=== PATIENT | female | born 1975 | race Two or more races ===

== ENCOUNTER → 2016-09-25 | Outpatient (REF) | payer OTHER ==
[2016-09-25 16:03] LABS: ANION GAP 8 MEQ/L (8-16); BLOOD UREA NITROGEN 12 MG/DL (7-18); CALCIUM LEVEL 8.5 MG/DL (8.5-10.1); CARBON DIOXIDE LEVEL 27 MEQ/L (21-32); CHLORIDE LEVEL 105 MEQ/L (98-107); CREATININE FOR GFR 0.93 MG/DL (0.55-1.02); GLOMERULAR FILTRATION RATE > 60.0 (>58); GLUCOSE, FASTING 86 MG/DL (70-105); POTASSIUM SERUM 4.6 MEQ/L (3.5-5.1); SODIUM LEVEL 140 MEQ/L (136-145)
[2016-09-25 16:08] LABS: BASO % 0.3 % (0.0-1.0); EOS # 0.3 K/mm3 (0.0-0.50); EOS % 4.1 % (0.0-3.0); LARGE UNSTAINED CELL # 0.2 K/mm3 (0.0-0.4); LARGE UNSTAINED CELL % 2.6 % (0.0-4.0); LYMPH % 15.5 % (24.0-44.0); MEAN CORPUSCULAR HEMOGLOBIN 28.9 pg (27.0-33.0); MEAN CORPUSCULAR HGB CONC 32.6 g/dl (32.0-36.5); MEAN CORPUSCULAR VOLUME 88.8 fl (80.0-96.0); MONO # 0.7 K/mm3 (0.0-0.8); MONO % 10.4 % (0.0-5.0); NEUTROPHILS # 4.4 K/mm3 (1.8-7.7); NEUTROPHILS % 67.1 % (36.0-66.0); PLATELET COUNT, AUTOMATED 367 k/mm3 (150-450); RED CELL DISTRIBUTION WIDTH 11.8 % (11.5-14.5); WHITE BLOOD COUNT 6.5 K/mm3 (4.0-10.0)
== END ==
LOC: M SFHCPLAZ 13:02
PROVIDERS: ATTEND Internal Medicine Infectious Disease
DX: A49.02 Methicillin resistant Staphylococcus aureus infection, unspecified site (principal)

== ENCOUNTER 2016-09-29 08:55 | Emergency (ER) | payer OTHER ==
--- NOTE | 2016-09-29 09:31 | EDDOCDS ---
Nurse's Notes [facility] Name: Dolly Hobbs Age: 41 yrs Sex: Female : 1975 Arrival Date: 09/29/2016 Time: 08:55 Bed Triage 1 Private MD: Marek Monzon Diagnosis: Rash and other nonspecific skin eruption-drug rash Presentation: 09/29 08:57 Presenting complaint: Patient states: spoke with MD Vásquez and was told to come to ED. pml has been taking Bactrim for 10 days and had an abscess drained from left mastoid area. reports itching and rash across lower extremities and abdomen. Adult Sepsis Screening: The patient does not have new or worsening altered mentation. Patient's respiratory rate is less than 22. Systolic blood pressure is greater than 100. Patient has a qSOFA score of 0- Negative Sepsis Screen. Suicide/Homicide risk assessment- the patient denies having any suicidal and/or homicidal ideations and does not present with any other emotional, behavioral or mental health complaints. 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 Transition of care: patient was not received from another setting of care. 08:57 Acuity: HADLEY Level 4 pml 08:57 Method Of Arrival: Walkin/Carried/Asstd pml Triage Assessment: 09:00 General: Appears in no apparent distress, Behavior is appropriate for age, cooperative. pml Pain: Denies pain. HIV screening NA for this visit Offered previously. 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 Bactrim DS 800-160 mg Oral tab 2 tabs once daily 2. mupirocin 2 % topical oint twice a day - PMHx: MRSA; gastroparesis; factor V Liden; - PSHx: asbcess drained; D & C; - Social history: Smoking status: Patient states was never smoker of tobacco. No barriers to communication noted, The patient speaks fluent Italian, Speaks appropriately for age. - Family history: Not pertinent. - : The pt / caregiver states he / she is not on anticoagulants. Home medication list is obtained from the patient. - Exposure Risk Screening:: None identified. Screenin:28 Screening information is obtained from the patient. Fall risk: No risks identified. pml Assistance ADL's: requires no assistance with activities of daily living. Abuse/DV Screen: The patient / caregiver reports he/she is: not in a situation that causes fear, pain or injury. Nutritional screening: No deficits noted. Advance Directives: Currently, there is no health care proxy. home support is adequate. Assessment: 09:28 General: Appears in no apparent distress, comfortable, Behavior is appropriate for age, pml cooperative. Pain: Denies pain. Neurological: Level of Consciousness is awake, alert, Oriented to person, place, time. Cardiovascular: Capillary refill < 3 seconds. Respiratory: Airway is patent Respiratory effort is even, unlabored, Breath sounds are clear bilaterally. GI: Abdomen is non- distended. Derm: Skin is pink, warm & dry. Rash noted that is itchy, red. Vital Signs: 09:00 BP 135 / 81; Pulse 111; Resp 20; Temp 97.1(O); Pulse Ox 100% on R/A; Weight 60.78 kg; pml Height 5 ft. 2 in. (157.48 cm); Pain 0/10; 09:00 Body Mass Index 24.51 (60.78 kg, 157.48 cm) [facility] Vitals: 09:00 Log In Time: September 29, 2016 at 08:53. [facility] ED Course: 08:56 Patient visited by Eric Campo. mm15 08:56 Marek Monzon is Private Physician. mm15 08:56 Patient moved to Waiting mm15 08:59 Triage Initiated pml 09:03 Patient visited by Risa Florentino RN. pml 09:03 Gerson Garcia PA-C [facility] cc10 09:03 Nat Valdez MD is Attending Physician. cc10 09:03 Patient visited by Gerson Garcia PA-C. cc10 09:03 Patient visited by Gerson Garcia PA-C. cc10 09:03 Patient moved to Triage 1 pml 09:24 Sunny Elizondo is Referral Physician. cc10 09:28 The patient / caregiver is instructed regarding the plan of care and ED course. Patient pml has correct armband on for positive identification. Bed in low position. 09:28 No IV's were initiated during this patient's visit. No procedures done that require pml assistance. Order Results: There are currently no results for this order. Outcome: 09:24 Discharge ordered by Provider. cc10 09:28 Discharge Assessment: Patient awake, alert and oriented x 3. No cognitive and/or pml functional deficits noted. Patient verbalized understanding of disposition instructions. patient administered narcotics - no. The following High Risk Discharge criteria are identified: None. Discharged to home ambulatory. Condition: good Condition: stable. Discharge instructions given to patient, Instructed on discharge instructions, follow up and referral plans. medication usage, Demonstrated understanding of instructions, medications, Pt was receptive of discharge instructions/ teaching. Prescriptions given X 1. No special radiology studies were completed. Property sent home with patient. 09:31 Patient left the ED. pml Signatures: Risa FlorentinoRN RN pml Eric Campo mm15 Gerson Garcia, PA-C PA-C cc10 Corrections: (The following items were deleted from the chart) 09:29 09:28 Derm: Skin is pink, warm & dry. pml pml MTDD
--- NOTE | 2016-09-29 09:31 | EDDOCDS ---
Physician Documentation [facility] Name: Dolly Hobbs Age: 41 yrs Sex: Female : 1975 Arrival Date: 09/29/2016 Time: 08:55 Bed Triage 1 Private MD: Marek Monzon Disposition: 09/29/16 09:24 Discharged to Home/Self Care. Impression: Rash and other nonspecific skin eruption - drug rash. - Condition is Stable. - Discharge Instructions: Drug Rash. - Prescriptions for Doxycycline Hyclate 100 mg Oral Tablet - take 1 tablet by ORAL route every 12 hours; 20 tablet. - Medication Reconciliation form. - Follow up: Sunny Elizondo; When: Call to arrange an appointment; Reason: Wound/Symptom Recheck, Recheck today's complaints, Continuance of care. - Problem is new. - Symptoms are unchanged. Historical: - Allergies: no known allergies; - Home Meds: 1. Bactrim DS 800-160 mg Oral tab 2 tabs once daily 2. mupirocin 2 % topical oint twice a day - PMHx: MRSA; gastroparesis; factor V Liden; - PSHx: asbcess drained; D & C; - Social history: Smoking status: Patient states was never smoker of tobacco. No barriers to communication noted, The patient speaks fluent Nepali, Speaks appropriately for age. - Family history: Not pertinent. - : The pt / caregiver states he / she is not on anticoagulants. Home medication list is obtained from the patient. - Exposure Risk Screening:: None identified. 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 2 in. (157.48 cm); Pain 0/10; 09:00 Body Mass Index 24.51 (60.78 kg, 157.48 cm) pml MDM: 09:29 Financial registration complete. mm15 Signatures: Risa Florentino RN RN pml Eric Campo mm15 Gerson Garcia, SHERRYC PADominikC cc10 MTDD
--- NOTE | 2016-10-01 10:32 | EDDOCDS ---
Nurse's Notes [facility] Name: Dolly Hobbs Age: 41 yrs Sex: Female : 1975 Arrival Date: 09/29/2016 Time: 08:55 Bed Triage 1 Private MD: Marek Monzon Diagnosis: Rash and other nonspecific skin eruption-drug rash Presentation: 09/29 08:57 Presenting complaint: Patient states: spoke with MD Vásquez and was told to come to ED. pml has been taking Bactrim for 10 days and had an abscess drained from left mastoid area. reports itching and rash across lower extremities and abdomen. Adult Sepsis Screening: The patient does not have new or worsening altered mentation. Patient's respiratory rate is less than 22. Systolic blood pressure is greater than 100. Patient has a qSOFA score of 0- Negative Sepsis Screen. Suicide/Homicide risk assessment- the patient denies having any suicidal and/or homicidal ideations and does not present with any other emotional, behavioral or mental health complaints. 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 Transition of care: patient was not received from another setting of care. 08:57 Acuity: HADLEY Level 4 pml 08:57 Method Of Arrival: Walkin/Carried/Asstd pml Triage Assessment: 09:00 General: Appears in no apparent distress, Behavior is appropriate for age, cooperative. pml Pain: Denies pain. HIV screening NA for this visit Offered previously. 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 Bactrim DS 800-160 mg Oral tab 2 tabs once daily 2. mupirocin 2 % topical oint twice a day - PMHx: MRSA; gastroparesis; factor V Liden; - PSHx: asbcess drained; D & C; - Social history: Smoking status: Patient states was never smoker of tobacco. No barriers to communication noted, The patient speaks fluent Mauritian, Speaks appropriately for age. - Family history: Not pertinent. - : The pt / caregiver states he / she is not on anticoagulants. Home medication list is obtained from the patient. - Exposure Risk Screening:: None identified. Screenin:28 Screening information is obtained from the patient. Fall risk: No risks identified. pml Assistance ADL's: requires no assistance with activities of daily living. Abuse/DV Screen: The patient / caregiver reports he/she is: not in a situation that causes fear, pain or injury. Nutritional screening: No deficits noted. Advance Directives: Currently, there is no health care proxy. home support is adequate. Assessment: 09:28 General: Appears in no apparent distress, comfortable, Behavior is appropriate for age, pml cooperative. Pain: Denies pain. Neurological: Level of Consciousness is awake, alert, Oriented to person, place, time. Cardiovascular: Capillary refill < 3 seconds. Respiratory: Airway is patent Respiratory effort is even, unlabored, Breath sounds are clear bilaterally. GI: Abdomen is non- distended. Derm: Skin is pink, warm & dry. Rash noted that is itchy, red. Vital Signs: 09:00 BP 135 / 81; Pulse 111; Resp 20; Temp 97.1(O); Pulse Ox 100% on R/A; Weight 60.78 kg; pml Height 5 ft. 2 in. (157.48 cm); Pain 0/10; 09:00 Body Mass Index 24.51 (60.78 kg, 157.48 cm) [facility] Vitals: 09:00 Log In Time: September 29, 2016 at 08:53. [facility] ED Course: 08:56 Patient visited by Eric Campo. mm15 08:56 Marek Monzon is Private Physician. mm15 08:56 Patient moved to Waiting mm15 08:59 Triage Initiated pml 09:03 Patient visited by Risa Florentino RN. pml 09:03 Gerson Garcia PA-C is [facility]. cc10 09:03 Nat Valdez MD is Attending Physician. cc10 09:03 Patient visited by Gerson Garcia PA-C. cc10 09:03 Patient visited by Gerson Garcia PA-C. cc10 09:03 Patient moved to Triage 1 pml 09:24 Sunny Elizondo is Referral Physician. cc10 09:28 The patient / caregiver is instructed regarding the plan of care and ED course. Patient pml has correct armband on for positive identification. Bed in low position. 09:28 No IV's were initiated during this patient's visit. No procedures done that require pml assistance. 09:47 [facility] Agreement was scanned into [employer] and attached to record. mm15 10:03 Patient name changed from Dolly\S\\S\Young\S\ to Dolly\S\ \S\Young. EDMS 09/30 14:32 T-Sheet-- Draft Copy was scanned into [employer] and attached to record. gb Order Results: There are currently no results for this order. Outcome: 09/29 09:24 Discharge ordered by Provider. cc10 09:28 Discharge Assessment: Patient awake, alert and oriented x 3. No cognitive and/or pml functional deficits noted. Patient verbalized understanding of disposition instructions. patient administered narcotics - no. The following High Risk Discharge criteria are identified: None. Discharged to home ambulatory. Condition: good Condition: stable. Discharge instructions given to patient, Instructed on discharge instructions, follow up and referral plans. medication usage, Demonstrated understanding of instructions, medications, Pt was receptive of discharge instructions/ teaching. Prescriptions given X 1. No special radiology studies were completed. Property sent home with patient. 09:31 Patient left the ED. pml Signatures: Dispatcher [employer] EDRI Josette Choi, Reg Reg gb Risa Florentino,CANDE RN pml Eric Campo mm15 Gerson Garcia, PA-C PA-C cc10 Corrections: (The following items were deleted from the chart) 09:29 09:28 Derm: Skin is pink, warm & dry. pml pml Chart Complete MTDD
--- NOTE | 2016-10-01 10:32 | EDDOCDS ---
Physician Documentation [facility] Name: Dolly Hobbs Age: 41 yrs Sex: Female : 1975 Arrival Date: 09/29/2016 Time: 08:55 Bed Triage 1 Private MD: Marek Monzon Disposition: 09/29/16 09:24 Discharged to Home/Self Care. Impression: Rash and other nonspecific skin eruption - drug rash. - Condition is Stable. - Discharge Instructions: Drug Rash. - Prescriptions for Doxycycline Hyclate 100 mg Oral Tablet - take 1 tablet by ORAL route every 12 hours; 20 tablet. - Medication Reconciliation form. - Follow up: Sunny Elizondo; When: Call to arrange an appointment; Reason: Wound/Symptom Recheck, Recheck today's complaints, Continuance of care. - Problem is new. - Symptoms are unchanged. Historical: - Allergies: no known allergies; - Home Meds: 1. Bactrim DS 800-160 mg Oral tab 2 tabs once daily 2. mupirocin 2 % topical oint twice a day - PMHx: MRSA; gastroparesis; factor V Liden; - PSHx: asbcess drained; D & C; - Social history: Smoking status: Patient states was never smoker of tobacco. No barriers to communication noted, The patient speaks fluent Icelandic, Speaks appropriately for age. - Family history: Not pertinent. - : The pt / caregiver states he / she is not on anticoagulants. Home medication list is obtained from the patient. - Exposure Risk Screening:: None identified. 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 2 in. (157.48 cm); Pain 0/10; 09:00 Body Mass Index 24.51 (60.78 kg, 157.48 cm) pml MDM: 09:29 Financial registration complete. mm15 09:47 [facility] Payment Agreement was scanned into [employer] and attached to record. mm15 09/30 14:32 T-Sheet-- Draft Copy was scanned into [employer] and attached to record. gb Signatures: Josette Choi, Reg Reg gb Risa Florentino RN RN Eric Purdy mm15 Gerson Garcia, SHERRYC PADominikC cc10 The chart was reviewed and I authenticate all verbal orders and agree with the evaluation and treatment provided.Attachments: 09/29 09:47 [facility] Payment Agreement mm15 09/30 14:32 T-Sheet-- Draft Copy gb Chart Complete MTDD
--- NOTE | 2016-10-01 10:32 | EDDOCDS ---
Physician Documentation [facility] Name: Dolly Hobbs Age: 41 yrs Sex: Female : 1975 Arrival Date: 09/29/2016 Time: 08:55 Bed Triage 1 Private MD: Marek Monzon Disposition: 09/29/16 09:24 Discharged to Home/Self Care. Impression: Rash and other nonspecific skin eruption - drug rash. - Condition is Stable. - Discharge Instructions: Drug Rash. - Prescriptions for Doxycycline Hyclate 100 mg Oral Tablet - take 1 tablet by ORAL route every 12 hours; 20 tablet. - Medication Reconciliation form. - Follow up: Sunny Elizondo; When: Call to arrange an appointment; Reason: Wound/Symptom Recheck, Recheck today's complaints, Continuance of care. - Problem is new. - Symptoms are unchanged. Historical: - Allergies: no known allergies; - Home Meds: 1. Bactrim DS 800-160 mg Oral tab 2 tabs once daily 2. mupirocin 2 % topical oint twice a day - PMHx: MRSA; gastroparesis; factor V Liden; - PSHx: asbcess drained; D & C; - Social history: Smoking status: Patient states was never smoker of tobacco. No barriers to communication noted, The patient speaks fluent Danish, Speaks appropriately for age. - Family history: Not pertinent. - : The pt / caregiver states he / she is not on anticoagulants. Home medication list is obtained from the patient. - Exposure Risk Screening:: None identified. 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 2 in. (157.48 cm); Pain 0/10; 09:00 Body Mass Index 24.51 (60.78 kg, 157.48 cm) pml MDM: 09:29 Financial registration complete. mm15 09:47 [facility] Payment Agreement was scanned into [employer] and attached to record. mm15 09/30 14:32 T-Sheet-- Draft Copy was scanned into [employer] and attached to record. gb Signatures: Josette Choi, Reg Reg gb Risa Florentino RN RN Eric Purdy mm15 Gerson Garcia, SHERRYC PADominikC cc10 The chart was reviewed and I authenticate all verbal orders and agree with the evaluation and treatment provided.Attachments: 09/29 09:47 [facility] Payment Agreement mm15 09/30 14:32 T-Sheet-- Draft Copy gb Chart Complete MTDD
== END 2016-09-29 09:31 | disposition home or self-care (01) ==
LOC: M ED 08:55
DX: L27.0 Generalized skin eruption due to drugs and medicaments taken internally (principal); B95.62 Methicillin resistant Staphylococcus aureus infection as the cause of diseases classified elsewhere; K31.84 Gastroparesis; D68.51 Activated protein C resistance

== ENCOUNTER → 2016-10-24 | Outpatient (REF) | payer OTHER | LOC: M SFHCPLAZ 15:16 | PROVIDERS: ATTEND Internal Medicine Infectious Disease | DX: A49.02 Methicillin resistant Staphylococcus aureus infection, unspecified site (principal) ==

== ENCOUNTER → 2016-11-28 | Outpatient (REF) | payer OTHER | LOC: M LAB REF 16:13 | PROVIDERS: ATTEND Internal Medicine Infectious Disease | DX: A49.02 Methicillin resistant Staphylococcus aureus infection, unspecified site (principal) ==